=== PATIENT | male | born 1945 | race Two or more races ===

== ENCOUNTER 2023-02-17 11:18 | Inpatient (IN) | payer MEDICARE, OTHER ==
[~2023-02-17] VITALS: Ht 162.6 cm; Wt 73.4 kg
[~2023-02-17 11:18] MED LIST: TAMS-35 PO
[2023-02-17] MEDS ORDERED: SODIUM CHLORIDE 0.9% 1,000 ML IV ONE ×2 (12:00)
[2023-02-17] MEDS ORDERED: DOPamine 1600MCG/ML D5W 250 ML IV ONE (12:00)
[2023-02-17 12:13] LABS: Basophils # (auto) 0.1 10 ^3/uL (0-0.2); Basophils % (auto) 0.9 % (0.0-2.0); Eosinophils # (auto) 0.3 10 ^3/uL (0-0.8); Eosinophils % (auto) 3.9 % (0.0-7.0); Lymphocytes # (auto) 1.5 10 ^3/uL (0.4-5.4); Lymphocytes % (auto) 17.1 % (10.0-50.0); Mean Corpuscular Hemoglobin 29.5 pg (28.0-32.0); Mean Corpuscular Hgb Conc. 34.1 g/dL (32.0-36.0); Mean Corpuscular Volume 86.5 fL (80.0-100.0); Monocytes # (auto) 0.5 10 ^3/uL (0-1.3); Monocytes % (auto) 5.3 % (0.0-12.0); Neutrophils # (auto) 6.4 10 ^3/uL (1.6-8.6); Neutrophils % (auto) 72.8 % (37.0-80.0); Nucleated Red Blood Cells % 0.1 %; Red Blood Cells 5.43 10^6/uL (4.5-5.90); Red Cell Distribution Width 15.4 % (11.8-14.3); White Blood Cell 8.8 10^3/uL (4.4-10.8)
[2023-02-17 13:02] LABS: Alanine Aminotransferase 60 U/L (7-40); Albumin 4.7 g/dL (3.2-4.8); Alkaline Phosphatase 79 U/L (46-116); Anion Gap 8 (5-15); Aspartate Aminotransferase 45 U/L (13-40); BUN/Creatinine Ratio 16.8 (10.0-20.0); Blood Urea Nitrogen 19 mg/dL (9-23); Calcium 9.5 mg/dL (8.5-10.1); Carbon Dioxide 27 mmol/L (20-30); Chloride 106 mmol/L (98-107); Glucose 125 mg/dL (74-106); Potassium 3.5 mmol/L (3.5-5.1); Sodium 141 mmol/L (136-145)
[2023-02-17 13:03] LABS: Total Protein 7.1 g/dL (5.7-8.2)
[2023-02-17] MEDS ORDERED: ONDANSETRON HCL 4 MG/2 ML VIAL IV ONE (13:45)
[2023-02-17 13:57] VITALS: PULSE 35; RESP 18; O2SAT 92
[2023-02-17] MEDS ORDERED: NITROGLYCERIN 0.4 MG SL TAB SL PRN (14:00)
[2023-02-17] MEDS ORDERED: MORPHINE SULFATE INJ 2 MG/ml SYRG IV PRN (14:00)
[2023-02-17] MEDS ORDERED: ONDANSETRON HCL 4 MG/2 ML VIAL IV PRN (14:00)
[2023-02-17] MEDS ORDERED: ASPirin 325 MG TAB PO ONE (14:00)
[2023-02-17 14:53] LABS: INR 1.06 (0.9-1.15); Prothrombin Time 11.1 sec (9.3-11.8)
[2023-02-17 14:54] LABS: Triglycerides 108 mg/dL (< 150)
[2023-02-17 14:55] LABS: LDL Cholesterol 168 mg/dL (< 100)
[2023-02-17 14:56] LABS: HDL Cholesterol 38 mg/dL (40-59)
[2023-02-17 14:57] LABS: Cholesterol 206 mg/dL (< 200)
[2023-02-17 15:05] LABS: Lipase 70 U/L (12-53)
[2023-02-17] MEDS ORDERED: CLOPIDOGREL 300 MG TAB PO ONE (16:15)
[2023-02-17] MEDS ORDERED: LISI-283 PO (16:20)
[2023-02-17] MEDS: SODIUM CHLORIDE 0.9% 1,000 ML IV SCH ×2 (16:30→17:01)
[2023-02-17 19:26] LABS: Urine Bacteria NONE SEEN /hpf (None Seen); Urine Blood Negative /uL (Negative); Urine Clarity Clear (Clear); Urine Color Colorless (Yellow); Urine Protein, UAD TRACE (Negative); Urine Specific Gravity 1.009 (1.001-1.035); Urine Urobilinogen Normal (Negative); Urine WBC 1 /hpf (0 - 3); Urine pH 5.5 (5.0-8.0)
[2023-02-17 20:00] VITALS: PULSE 49; RESP 10; O2SAT 93
[2023-02-17 20:05] VITALS: PULSE 48; RESP 23; O2SAT 94
[2023-02-17] MEDS: TAMSULOSIN HYDROCHLORIDE 0.4 MG CAP PO SCH (21:58)
[2023-02-17] MEDS: ACETAMINOPHEN 325 MG TAB PO PRN (21:58)
[2023-02-17] MEDS: ATORVASTATIN 20 MG TAB PO SCH (21:58)
[2023-02-17] MEDS: METOCLOPRAMIDE HCL 5MG/ml INJ 2ml VIAL IV PRN (21:59)
[2023-02-17] MEDS: hydrALAZINE HCL 20 MG/ML VL IV PRN (21:59)
[2023-02-18] VITALS (44 sets, daily range): BP systolic 139–172; BP diastolic 58–76; PULSE 40–51; RESP 10–24; TEMP 97.4–98.2; O2SAT 91–97
[2023-02-18] MEDS ORDERED: METOCLOPRAMIDE HCL 5MG/ml INJ 2ml VIAL IV SCH
[2023-02-18] MEDS ORDERED: DOPamine 1600MCG/ML D5W 250 ML IV ONE (02:05)
[2023-02-18] MEDS ORDERED: DOPamine 1600MCG/ML D5W 250 ML IV SCH (03:15)
[2023-02-18] MEDS: METOCLOPRAMIDE HCL 5MG/ml INJ 2ml VIAL IV PRN (05:52)
[2023-02-18] MEDS: SODIUM CHLORIDE 0.9% 1,000 ML IV SCH ×2 (06:40→12:40)
[2023-02-18 06:42] LABS: Basophils # (auto) 0 10 ^3/uL (0-0.2); Basophils % (auto) 0.1 % (0.0-2.0); Eosinophils # (auto) 0 10 ^3/uL (0-0.8); Hematocrit 46.3 % (41.0-53.0); Hemoglobin 15.6 g/dL (13.5-17.5); Lymphocytes # (auto) 1.2 10 ^3/uL (0.4-5.4); Lymphocytes % (auto) 9.1 % (10.0-50.0); Mean Corpuscular Hgb Conc. 33.7 g/dL (32.0-36.0); Mean Corpuscular Volume 85.9 fL (80.0-100.0); Monocytes # (auto) 1.1 10 ^3/uL (0-1.3); Monocytes % (auto) 7.9 % (0.0-12.0); Neutrophils # (auto) 11.3 10 ^3/uL (1.6-8.6); Neutrophils % (auto) 82.9 % (37.0-80.0); Nucleated Red Blood Cells % 0.1 %; Red Blood Cells 5.39 10^6/uL (4.5-5.90); Red Cell Distribution Width 14.9 % (11.8-14.3); White Blood Cell 13.6 10^3/uL (4.4-10.8)
[2023-02-18 07:02] LABS: Alanine Aminotransferase 44 U/L (7-40); Alkaline Phosphatase 79 U/L (46-116); Anion Gap 11 (5-15); BUN/Creatinine Ratio 10.7 (10.0-20.0); Blood Urea Nitrogen 13 mg/dL (9-23); Calcium 9.1 mg/dL (8.7-10.4); Carbon Dioxide 22 mmol/L (20-30); Chloride 106 mmol/L (98-107); Glucose 160 mg/dL (74-106); Sodium 139 mmol/L (136-145)
[2023-02-18 07:04] LABS: Albumin 4.4 g/dL (3.2-4.8); Aspartate Aminotransferase 33 U/L (13-40); Bilirubin, Total 2.2 mg/dL (0.2-1.0)
[2023-02-18] MEDS ORDERED: ASPirin 81 mg TAB PO SCH (10:00)
[2023-02-18] MEDS ORDERED: PATIENTS OWN MEDICATION (Lisinopril & Hydrochlorothiazi (Lisinopril/Hydrochlorothi) 1 TAB) PO SCH (10:00)
[2023-02-18] MEDS ORDERED: ENOXAPARIN SOD 40 MG/0.4 ML SYRINGE SC SCH (10:00)
[2023-02-18] MEDS ORDERED: CLOPIDOGREL BISULFATE 75 MG TAB PO SCH (10:00)
[2023-02-18] MEDS ORDERED: POTASSIUM CHL 20 Meq TABLET PO ONE (10:00)
[2023-02-18] MEDS: DOPamine 1600MCG/ML D5W 250 ML IV SCH ×2 (11:58→18:59)
[2023-02-18] MEDS ORDERED: LIDOCAINE 2%HCL (LOCAL ANESTH.) INJ 20ML MDV ONE ×2 (13:08→13:49)
[2023-02-18] MEDS ORDERED: fentaNYL CITRATE 100 MCG/2 ML VL ONE (13:16)
[2023-02-18] MEDS ORDERED: VANCOMYCIN 1GM/250ML 250 ML IV ONE (13:17)
[2023-02-18] MEDS ORDERED: MIDAZOLAM HCL 2MG/2ML 2ml VIAL (1mg/ml) ONE (13:17)
[2023-02-18] MEDS ORDERED: VANCOMYCIN HCL 1000 MG VL ONE (13:17)
[2023-02-18] MEDS ORDERED: LIDOCAINE 2%HCL (LOCAL ANESTH.) INJ 10ml MDV ONE (13:45)
[2023-02-18] MEDS ORDERED: IODIXANOL 320MG/ML 100ML BTL IV ONE (13:45)
[2023-02-18] MEDS ORDERED: LISINOPRIL 20 MG TAB PO ONE (13:45)
[2023-02-18] MEDS ORDERED: VERAPAMIL 2.5MG/ML INJ 2ML VIAL IV ONE (13:47)
[2023-02-18] MEDS ORDERED: HEPARIN SODIUM (PORCINE) 5000 UNITS/ML 1ML VIAL ONE (13:52)
[2023-02-18] MEDS: metroNIDAZOLE 500MG/100ML 100 ML IV SCH ×2 (15:51→21:27)
[2023-02-18] MEDS: cefTRIAXone 1GM/50ML D5W 50 ML IV SCH (15:52)
[2023-02-18] MEDS: TAMSULOSIN HYDROCHLORIDE 0.4 MG CAP PO SCH (17:55)
[2023-02-18] MEDS ORDERED: MORPHINE SULFATE INJ 2 MG/ml SYRG IV PRN (21:30)
[2023-02-18] MEDS: ATORVASTATIN 20 MG TAB PO SCH (21:31)
[2023-02-19] VITALS (130 sets, daily range): BP systolic 68–181; BP diastolic 31–83; PULSE 39–95; RESP 8–29; TEMP 97.7–98.9; O2SAT 91–99
[2023-02-19] MEDS: DOPamine 1600MCG/ML D5W 250 ML IV SCH ×2 (04:29→06:49)
[2023-02-19] MEDS: SODIUM CHLORIDE 0.9% 1,000 ML IV SCH ×2 (04:29→17:39)
[2023-02-19] MEDS: hydrALAZINE HCL 20 MG/ML VL IV PRN (04:32)
[2023-02-19] MEDS: METOCLOPRAMIDE HCL 5MG/ml INJ 2ml VIAL IV PRN (05:18)
[2023-02-19 05:23] LABS: Basophils # (auto) 0.1 10 ^3/uL (0-0.2); Basophils % (auto) 0.4 % (0.0-2.0); Eosinophils # (auto) 0 10 ^3/uL (0-0.8); Eosinophils % (auto) 0.3 % (0.0-7.0); Hematocrit 47.7 % (41.0-53.0); Hemoglobin 16.1 g/dL (13.5-17.5); Lymphocytes # (auto) 1.3 10 ^3/uL (0.4-5.4); Lymphocytes % (auto) 9.7 % (10.0-50.0); Mean Corpuscular Hgb Conc. 33.7 g/dL (32.0-36.0); Mean Corpuscular Volume 86.2 fL (80.0-100.0); Monocytes # (auto) 1.2 10 ^3/uL (0-1.3); Neutrophils # (auto) 11.2 10 ^3/uL (1.6-8.6); Neutrophils % (auto) 80.6 % (37.0-80.0); Nucleated Red Blood Cells % 0.1 %; Red Blood Cells 5.53 10^6/uL (4.5-5.90); Red Cell Distribution Width 14.6 % (11.8-14.3); White Blood Cell 13.9 10^3/uL (4.4-10.8)
[2023-02-19 05:27] LABS: Alanine Aminotransferase 36 U/L (7-40); Albumin 4.3 g/dL (3.2-4.8); Alkaline Phosphatase 76 U/L (46-116); Aspartate Aminotransferase 34 U/L (13-40); BUN/Creatinine Ratio 9.5 (10.0-20.0); Blood Urea Nitrogen 9 mg/dL (9-23); Calcium 8.8 mg/dL (8.7-10.4); Chloride 108 mmol/L (98-107); Glucose 145 mg/dL (74-106); Magnesium 1.9 mg/dL (1.6-2.6); Potassium 3.6 mmol/L (3.5-5.1); Sodium 139 mmol/L (136-145)
[2023-02-19 05:28] LABS: Bilirubin, Total 1.8 mg/dL (0.2-1.0); Total Protein 6.9 g/dL (5.7-8.2)
[2023-02-19] MEDS: metroNIDAZOLE 500MG/100ML 100 ML IV SCH ×3 (05:29→22:06)
[2023-02-19 06:23] LABS: Anion Gap 11 (5-15); Carbon Dioxide 20 mmol/L (20-30)
[2023-02-19 07:48] LABS: INR 1.12 (0.9-1.15); Partial Thromboplastin Time 32.8 SEC (24.5-34.5); Prothrombin Time 11.7 sec (9.3-11.8)
[2023-02-19] MEDS: cefTRIAXone 1GM/50ML D5W 50 ML IV SCH (08:40)
[2023-02-19] MEDS: LISINOPRIL 20 MG TAB PO SCH (08:41)
[2023-02-19] MEDS ORDERED: MIDAZOLAM HCL 2MG/2ML 2ml VIAL (1mg/ml) ONE (12:16)
[2023-02-19] MEDS ORDERED: VANCOMYCIN 1GM/250ML 250 ML IV ONE (12:16)
[2023-02-19] MEDS ORDERED: LIDOCAINE 2%HCL (LOCAL ANESTH.) INJ 20ML MDV ONE (12:16)
[2023-02-19] MEDS ORDERED: fentaNYL CITRATE 100 MCG/2 ML VL ONE (12:16)
[2023-02-19] MEDS ORDERED: VANCOMYCIN HCL 1000 MG VL ONE (12:16)
[2023-02-19] MEDS ORDERED: IODIXANOL 320MG/ML 100ML BTL IV ONE (12:38)
[2023-02-19] MEDS ORDERED: HYDROmorphone HCL 2 MG/ML VL/or syr ONE (13:41)
[2023-02-19] MEDS: TAMSULOSIN HYDROCHLORIDE 0.4 MG CAP PO SCH (17:05)
[2023-02-19] MEDS ORDERED: NOREPINEPHRINE 8 MG/250ML KIT 250 ML IV SCH (17:30)
[2023-02-19] MEDS: ATORVASTATIN 20 MG TAB PO SCH (22:06)
[2023-02-20] VITALS (56 sets, daily range): BP systolic 105–165; BP diastolic 51–83; PULSE 65–94; RESP 6–25; TEMP 97.4–99.2; O2SAT 91–98
[2023-02-20 05:34] LABS: Basophils # (auto) 0 10 ^3/uL (0-0.2); Basophils % (auto) 0.5 % (0.0-2.0); Eosinophils # (auto) 0.1 10 ^3/uL (0-0.8); Eosinophils % (auto) 1.3 % (0.0-7.0); Hematocrit 40.2 % (41.0-53.0); Hemoglobin 13.6 g/dL (13.5-17.5); Lymphocytes # (auto) 1.1 10 ^3/uL (0.4-5.4); Lymphocytes % (auto) 11.2 % (10.0-50.0); Mean Corpuscular Hemoglobin 29.3 pg (28.0-32.0); Mean Corpuscular Hgb Conc. 33.9 g/dL (32.0-36.0); Mean Corpuscular Volume 86.4 fL (80.0-100.0); Monocytes % (auto) 10.4 % (0.0-12.0); Neutrophils # (auto) 7.6 10 ^3/uL (1.6-8.6); Neutrophils % (auto) 76.6 % (37.0-80.0); Nucleated Red Blood Cells % 0.1 %; Red Blood Cells 4.66 10^6/uL (4.5-5.90); Red Cell Distribution Width 15.1 % (11.8-14.3); White Blood Cell 9.9 10^3/uL (4.4-10.8)
[2023-02-20] MEDS: metroNIDAZOLE 500MG/100ML 100 ML IV SCH ×3 (05:51→21:55)
[2023-02-20 05:56] LABS: Alanine Aminotransferase 24 U/L (7-40); Albumin 3.5 g/dL (3.2-4.8); Alkaline Phosphatase 60 U/L (46-116); Anion Gap 7 (5-15); Aspartate Aminotransferase 21 U/L (13-40); BUN/Creatinine Ratio 14.9 (10.0-20.0); Bilirubin, Total 1.3 mg/dL (0.2-1.0); Blood Urea Nitrogen 18 mg/dL (9-23); Calcium 8.3 mg/dL (8.7-10.4); Carbon Dioxide 23 mmol/L (20-30); Chloride 111 mmol/L (98-107); Glucose 89 mg/dL (74-106); Magnesium 1.9 mg/dL (1.6-2.6); Potassium 3.3 mmol/L (3.5-5.1); Sodium 141 mmol/L (136-145); Total Protein 5.6 g/dL (5.7-8.2)
[2023-02-20] MEDS: cefTRIAXone 1GM/50ML D5W 50 ML IV SCH (08:40)
[2023-02-20] MEDS: LISINOPRIL 20 MG TAB PO SCH (10:06)
[2023-02-20] MEDS ORDERED: POTASSIUM EFFERVESENT TAB 25 MEQ PO ONE (13:15)
[2023-02-20] MEDS ORDERED: NIFEdipine ER 30 MG TAB PO ONE (13:30)
[2023-02-20] MEDS: TAMSULOSIN HYDROCHLORIDE 0.4 MG CAP PO SCH (17:39)
[2023-02-20] MEDS: ACETAMINOPHEN 325 MG TAB PO PRN (17:59)
[2023-02-20] MEDS: ATORVASTATIN 20 MG TAB PO SCH (21:55)
[2023-02-21 05:00] VITALS: BP 121/67; PULSE 88; RESP 19; TEMP 98.8; O2SAT 95
[2023-02-21] MEDS: metroNIDAZOLE 500MG/100ML 100 ML IV SCH ×2 (06:11→16:30)
[2023-02-21 06:39] LABS: Chloride 110 mmol/L (98-107); Potassium 3.2 mmol/L (3.5-5.1); Sodium 140 mmol/L (136-145)
[2023-02-21 06:40] LABS: Anion Gap 6 (5-15); Calcium 8.4 mg/dL (8.7-10.4); Carbon Dioxide 24 mmol/L (20-30)
[2023-02-21 06:45] LABS: BUN/Creatinine Ratio 16.8 (10.0-20.0); Blood Urea Nitrogen 17 mg/dL (9-23); Glucose 102 mg/dL (74-106)
[2023-02-21 08:00] VITALS: PULSE 68; PULSE 94; RESP 16; O2SAT 94
[2023-02-21 09:00] VITALS: BP 129/70; PULSE 94; RESP 16; TEMP 98.1; O2SAT 94
[2023-02-21] MEDS ORDERED: NIFEdipine ER 30 MG TAB PO SCH (10:00)
[2023-02-21] MEDS: cefTRIAXone 1GM/50ML D5W 50 ML IV SCH (10:01)
[2023-02-21] MEDS: LISINOPRIL 20 MG TAB PO SCH (10:02)
[2023-02-21 13:00] VITALS: BP 136/70; PULSE 80; RESP 16; TEMP 98.4; O2SAT 95
[2023-02-21] MEDS ORDERED: NIFE1TAB31 PO (13:14)
[2023-02-21] MEDS ORDERED: guaiFENesin-DM 100/10mg/5ml SYR PO PRN (13:15)
[2023-02-21] MEDS ORDERED: DOXY-286 PO (13:17)
[2023-02-21 15:35] VITALS: BP 136/70; PULSE 80; RESP 16; TEMP 98.4; O2SAT 95
== END 2023-02-21 16:30 | disposition home or self-care (01) | DRG 242 ==
LOC: ER 11:18 → TELE 14:04 → DOU IN ICU 02-18 18:33 → ICU CENTRL 02-19 04:56 → TELE-CENTR 02-20 23:08
PROVIDERS: ADMIT Nurse Practitioner Family; ATTEND Internal Medicine Geriatric Medicine
PROC: 4A023N7 Measurement of Cardiac Sampling and Pressure, Left Heart, Percutaneous Approach (ICD-10-PCS; 2023-02-18)
PROC: B2111ZZ Fluoroscopy of Multiple Coronary Arteries using Low Osmolar Contrast (ICD-10-PCS; 2023-02-18)
PROC: B41F1ZZ Fluoroscopy of Right Lower Extremity Arteries using Low Osmolar Contrast (ICD-10-PCS; 2023-02-18)
PROC: B2151ZZ Fluoroscopy of Left Heart using Low Osmolar Contrast (ICD-10-PCS; 2023-02-18)
PROC: 0JH606Z Insertion of Pacemaker, Dual Chamber into Chest Subcutaneous Tissue and Fascia, Open Approach (ICD-10-PCS; principal; 2023-02-19)
PROC: 02H63JZ Insertion of Pacemaker Lead into Right Atrium, Percutaneous Approach (ICD-10-PCS; 2023-02-19)
PROC: 02HK3JZ Insertion of Pacemaker Lead into Right Ventricle, Percutaneous Approach (ICD-10-PCS; 2023-02-19)
DX: I44.2 Atrioventricular block, complete (principal); I21.A1 Myocardial infarction type 2; I45.2 Bifascicular block; I47.20 Ventricular tachycardia, unspecified; I44.1 Atrioventricular block, second degree; N40.0 Benign prostatic hyperplasia without lower urinary tract symptoms; E66.9 Obesity, unspecified; E78.5 Hyperlipidemia, unspecified; I10 Essential (primary) hypertension; E87.6 Hypokalemia; K76.0 Fatty (change of) liver, not elsewhere classified; I25.10 Atherosclerotic heart disease of native coronary artery without angina pectoris; Z79.82 Long term (current) use of aspirin; Z83.3 Family history of diabetes mellitus; Z68.27 Body mass index [BMI] 27.0-27.9, adult; K80.20 Calculus of gallbladder without cholecystitis without obstruction
CPT/HCPCS: 33208; 36415; 71045; 74176; 75710; 76705; 78226; 80048; 80053; 80061; 81001; 83690; 83735; 83880; 84443; 84484; 85025; 85610; 85730; 86850; 86900; 86901; 87081; 93005; 93306; 93458; 93886; 97163; 99152; 99291; G0378; J0696; J2001; J2250; J2405; J3490; Q9967